=== PATIENT | female | born 1965 | race American Indian/Alaskan Native ===

== ENCOUNTER 2018-04-10 12:07 | Emergency (ER) | payer BC ==
[2018-04-10 12:23] VITALS: BMI 43.2
[2018-04-10 12:30] VITALS: RESP 18; O2SAT 99
--- NOTE | 2018-04-10 13:39 | RAD ---
PROCEDURE: Cervical Spine Radiographs. HISTORY: Pain. COMPARISON: None. FINDINGS: BONES: Alignment maintained. No fracture. Dens Intact. DISC SPACES: There is disc degeneration with anterior osteophytes from C4 through C7 SOFT TISSUES: Normal. No prevertebral soft tissue swelling. OTHER FINDINGS: None. IMPRESSION: There is disc degeneration with anterior osteophytes from C4 through C7
--- NOTE | 2018-04-10 13:49 | ED PDOC ---
Arrival/HPI - General Chief Complaint: Back Pain Time Seen by Provider: 04/10/18 12:44 Historian: Patient - History of Present Illness Narrative History of Present Illness (Text): 04/10/18 13:42 52yo female with PMhx of hypertension, chronic back pain secondary to bulging disc present with complaint of sharp right sided lower back pain and neck pain. States pain became worse after falling 2weeks ago. States she was seen by her Job doctor s/p and was given pain medication. Report that pain became worse today. She stated imaging was not done after her trauma 2weeks ago. She denies any recent trauma, focal weakness, urinary/fecal incontinence, saddle anesthesia , nuchal ridigty, fever, rash, nausea, vomiting, any other complaint. Past Medical History - Provider Review Nursing Documentation Reviewed: Yes - Cardiac Hx Hypertension: Yes - Integumentary Hx Dermatological Disorder: No (boil) - Musculoskeletal/Rheumatological Hx Musculoskeletal Disorders: Yes Hx Falls: Yes - Psychiatric Hx Substance Use: No - Surgical History Hx Gastric Bypass Surgery: Yes Hx Tubal Ligation: Yes Family/Social History - Physician Review Nursing Documentation Reviewed: Yes Family/Social History: Unknown Family HX Smoking Status: Never Smoked Hx Alcohol Use: No Hx Substance Use: No Allergies/Home Meds Allergies/Adverse Reactions: Allergies No Known Allergies Allergy (Verified 04/10/18 12:54) Review of Systems - Physician Review All systems were reviewed & negative as marked: Yes - Review of Systems Constitutional: Normal Eyes: Normal ENT: Normal Respiratory: Normal Cardiovascular: Normal Gastrointestinal: Normal Genitourinary Female: Normal Musculoskeletal: Back Pain, Neck Pain Skin: Normal Neurological: Normal Endocrine: Normal Hemo/Lymphatic: Normal Psychiatric: Normal Physical Exam Vital Signs Reviewed: Yes Vital Signs Temp Pulse Resp BP Pulse Ox 04/10/18 14:45 98.5 F 70 18 110/72 99 04/10/18 12:25 98.6 F 79 18 107/74 99 Temperature: Afebrile Blood Pressure: Normal Pulse: Regular Respiratory Rate: Normal Appearance: Positive for: Well-Appearing, Non-Toxic, Comfortable Pain Distress: None Mental Status: Positive for: Alert and Oriented X 3 - Systems Exam Head: Present: Atraumatic, Normocephalic Pupils: Present: PERRL Extroacular Muscles: Present: EOMI Conjunctiva: Present: Normal Mouth: Present: Moist Mucous Membranes Neck: Present: Normal Range of Motion, Paraspinal Tenderness (Right paracervical tenderness). No: Meningeal Signs, MIDLINE TENDERNESS Respiratory/Chest: Present: Clear to Auscultation, Good Air Exchange. No: Respiratory Distress, Accessory Muscle Use Cardiovascular: Present: Regular Rate and Rhythm, Normal S1, S2. No: Murmurs Abdomen: No: Tenderness, Distention, Peritoneal Signs Back: Present: Paraspinal Tenderness (Right paralumbar tenderness), Pain with Leg Raise (B/L). No: Midline Tenderness Upper Extremity: Present: Normal Inspection. No: Cyanosis, Edema Lower Extremity: Present: Normal Inspection. No: Edema Neurological: Present: GCS=15, CN II-XII Intact, Speech Normal Skin: Present: Warm, Dry, Normal Color. No: Rashes Psychiatric: Present: Alert, Oriented x 3, Normal Insight, Normal Concentration Medical Decision Making ED Course and Treatment: 04/10/18 16:45 Pt presented for stated history. she was ambulatory and neurologically intact in ED. She declined pain mediation in ED, states it makes her sleepy and will take medication at home. LS CT IMPRESSION: No acute fracture. Grade 1 retrolisthesis at L5-S1, degenerative in origin. . Degenerative disc disease at L4-5 and L5-S1. Multilevel disc bulge none. Neural foraminal stenosis L4-5 and L5-S1, severe at L5-S1. No central spinal stenosis. No focal disc herniation. Cervical spine xray IMPRESSION: There is disc degeneration with anterior osteophytes from C4 through C7 Result was DW the pt and she was Dc home with Naprosyn and flexeril - RAD Interpretation Radiology Orders: 04/10/18 12:54 LUMBAR SPINE W/O CONTRAST [CT] Stat 04/10/18 12:55 CERVICAL SPINE >18YR W/OBLIQUE [RAD] Stat - Medication Orders Current Medication Orders: Discontinued Medications Cyclobenzaprine HCl (Flexeril) 10 mg PO STAT STA Stop: 04/10/18 13:15 Last Admin: 04/10/18 14:26 Dose: Not Given Non-Admin Reason: Patient Refused Ketorolac Tromethamine (Toradol) 60 mg IM STAT STA Stop: 04/10/18 13:15 Last Admin: 04/10/18 14:26 Dose: Not Given Non-Admin Reason: Patient Refused Disposition/Present on Arrival - Present on Arrival Any Indicators Present on Arrival: No History of DVT/PE: No History of Uncontrolled Diabetes: No Urinary Catheter: No History of Decub. Ulcer: No History Surgical Site Infection Following: None - Disposition Have Diagnosis and Disposition been Completed?: Yes Diagnosis: Back pain, Neck pain Disposition: HOME/ ROUTINE Disposition Time: 14:30 Patient Plan: Discharge Condition: STABLE Discharge Instructions (ExitCare): Neck Pain, Low Back Pain (DC) Additional Instructions: Follow up with your Doctor Return to ED for any new symptoms Prescriptions: Cyclobenzaprine [Cyclobenzaprine HCl] 10 mg PO DAILY #10 tab Naproxen [Naprosyn] 500 mg PO BID #20 tablet Referrals: Clem Aargon MD [Primary Care Provider] - Follow up with primary Forms: [facility] ([place]), WORK NOTE
--- NOTE | 2018-04-10 14:14 | CT ---
PROCEDURE: CT Lumbar Spine without contrast HISTORY: back pain s/p trauma COMPARISON: None. TECHNIQUE: Axial computed tomography images were obtained of the lumbar spine without the use of intravenous contrast. Coronal and sagittal reformatted images were created and reviewed. Radiation dose: Total exam DLP = mGy-cm. This CT exam was performed using one or more of the following dose reduction techniques: Automated exposure control, adjustment of the mA and/or kV according to patient size, and/or use of iterative reconstruction technique. FINDINGS: VERTEBRAE: Vertebral bodies maintained in height. Transverse processes and posterior elements are intact. There is grade 1 retrolisthesis at L5-S1. Normal alignment is seen elsewhere. DISCS/SPINAL CANAL/NEURAL FORAMINA: L1-2: Unremarkable. L2-3: Unremarkable. L3-4: Minimal disc bulge. No spinal or neural foraminal stenosis. No focal disc herniation. L4-5: Mild narrowing of the intervertebral disc space consistent with degenerative disc disease. Diffuse disc bulge, asymmetric towards the left. Mild right and moderate left neural foraminal stenosis. No focal herniation. No central spinal stenosis. Bilateral degenerative facet arthropathy. L5-S1: Severe narrowing of the intervertebral disc space consistent with degenerative disc disease. Diffuse disc bulge. Bilateral degenerative facet arthropathy. No focal disc herniation. Severe bilateral neural foraminal stenosis. No central spinal stenosis. PARASPINAL SOFT TISSUES: Unremarkable. OTHER FINDINGS: None. IMPRESSION: No acute fracture. Grade 1 retrolisthesis at L5-S1, degenerative in origin. . Degenerative disc disease at L4-5 and L5-S1. Multilevel disc bulge none. Neural foraminal stenosis L4-5 and L5-S1, severe at L5-S1. No central spinal stenosis. No focal disc herniation.
[2018-04-10 16:12] VITALS: BP 110/72; PULSE 70; TEMP 98.5
== END 2018-04-10 14:45 | disposition home or self-care (01) ==
LOC: ED 12:07
DX: M54.2 Cervicalgia (principal); M54.5 Low back pain; I10 Essential (primary) hypertension; Z98.84 Bariatric surgery status